=== PATIENT | female | born 1995 | race Caucasian/White ===

== ENCOUNTER 2023-09-26 09:20 | Emergency (ER) | payer OTHER, SELFPAY ==
[2023-09-26 09:21] VITALS: BP 133/84; PULSE 63; RESP 20; TEMP 36.4; O2SAT 100
--- NOTE | 2023-09-26 09:43 | ED.ABDPAIN ---
HPI - Abdominal Pain General Chief Complaint: Abdominal Pain Stated Complaint: diarrhea; abdominal pain Time Seen by Provider: 09/26/23 09:32 Source: patient Mode of arrival: ambulatory Limitations: no limitations History of Present Illness HPI narrative: this is a 27-year-old female with some history of abdominal discomfort with nausea and abdominal bloating with episodes of diarrhea currently the patient is comfortable with no symptoms no diarrhea no abdominal pain does feel mildly nauseated with no vomiting no fever chills no shortness of breath or chest pain. MD elicited complaint: abdominal pain Onset (ago): year(s) Location: epigastric Severity: mild Related Data Home Medications Medication Instructions Recorded Confirmed atorvastatin 20 mg tablet 20 mg PO DAILY 09/26/23 09/26/23 fenofibrate 160 mg tablet 160 mg PO DAILY 09/26/23 09/26/23 metformin 500 mg tablet,extended 500 mg PO BID 09/26/23 09/26/23 release 24 hr semaglutide 0.25 mg or 0.5 mg (2 0.25 mg subcut WEEKLY 09/26/23 09/26/23 mg/3 mL) subcutaneous pen injector (Ozempic) Allergies Allergy/AdvReac Type Severity Reaction Status Date / Time ceftriaxone [From Rocephin] Allergy Severe Anaphalaxis Verified 09/26/23 09:26 Penicillins Allergy Unknown Hives Verified 09/26/23 09:26 Review of Systems Review of Systems: All systems reviewed & are unremarkable except as noted in HPI and below PMFSH Past Medical History Medical History HLD (hyperlipidemia) Social History Social History Smoking packs per day: 0.5 Smoking cigarettes per day: 10.0 Smoking status: Current every day smoker Alcohol intake: current Substance use: never Exam Const: General: healthy appearing Nutritional Appearance: well nourished Orientation/consciousness: patient oriented x3 Limitations: no limitations Neck: Neck: normal visual inspection, no lymphadenopathy and no meningeal signs Chest: Chest palpation & inspection: normal inspection of the chest Resp: Effort & Inspection: normal respiratory effort Auscultation: clear to auscultation bilaterally Cardio: Rate: regular rate Rhythm: regular rhythm GI: GI Palp: Yes Soft to palpation and Yes Tenderness to palpation present (GI) ( mild epigastric tenderness with palpation) Auscultation: normal bowel sounds Back/Spine/Pelvis: Back: no CVA tenderness Skin: General skin exam: normal color Rashes: no rashes Neuro: General: patient oriented x3, moves all extremities and no meningeal signs Course Course Emergency Course: patient currently has no abdominal pain no nausea or vomiting except for some mild nausea with no diarrhea, will administer a dose of Zofran Protonix. Vital Signs Vital signs: Vital Signs Temperature 36.4 C 09/26/23 09:21 Pulse Rate 63 09/26/23 09:21 Respiratory Rate 20 09/26/23 09:21 Blood Pressure 133/84 09/26/23 09:21 Pulse Oximetry 100 09/26/23 09:21 Oxygen Delivery Room Air 09/26/23 09:21 Temperature 36.4 C 09/26/23 09:21 Pulse Rate 63 09/26/23 09:21 Respiratory Rate 20 09/26/23 09:21 Blood Pressure 133/84 09/26/23 09:21 Pulse Oximetry 100 09/26/23 09:21 Oxygen Delivery Room Air 09/26/23 09:21 Critical Care Time Critical Care Time Critical Care Time: No Discharge Plan Discharge Clinical Impression: Gastritis Patient Disposition: Home, Self-Care Condition: Stable Instructions: Antibiotic Form, Gastritis (ED) Additional Instructions: advised patient to hold her fenofibrate, take medicine as prescribed and follow up with primary if symptoms persist or worsen Prescriptions: New pantoprazole [Protonix] 40 mg tablet,delayed release (DR/EC) 40 mg PO QAM 28 Days Qty: 28 0RF ondansetron 4 mg tablet,disintegrating 4 mg PO Q6H PRN (Reason: nausea and vomiting) Qty: 14 0RF Acidophilus C
[2023-09-26] MEDS: ONDANSETRON HCL ODT 4 MG TABLET PO (09:46)
[2023-09-26] MEDS: PANTOPRAZOLE 40 MG TABLET PO (09:46)
== END 2023-09-26 09:56 | disposition home or self-care (01) ==
PROVIDERS: Emergency Provider Emergency Medicine; PCP Physician Assistant
DX: K29.70 Gastritis, unspecified, without bleeding (principal); E78.5 Hyperlipidemia, unspecified; Z79.84 Long term (current) use of oral hypoglycemic drugs; Z79.85 Long-term (current) use of injectable non-insulin antidiabetic drugs; F17.210 Nicotine dependence, cigarettes, uncomplicated
CPT/HCPCS: 99283; A9270

== ENCOUNTER 2024-11-26 19:16 | Emergency (ER) | payer OTHER, SELFPAY ==
--- NOTE | ~2024-11-26 | CT_ITS ---
CLINICAL INDICATION: Lower abdominal pain COMPARISON: None. TECHNIQUE: Multiple contiguous axial images of the abdomen and pelvis were performed without the admi nistration of intravenous contrast The dose-length product (DLP) was 1426.99 mGy-cm. Automated exposure control and iterative reconstruction technique were employed. FINDINGS/OBSERVATIONS: Visualized lower thorax: The bilateral lung bases are clear. The heart is of normal size, without pericardial effusion. Liver: The liver demonstrates homogeneous attenuation and is enlarged measuring 20 cm in longitudinal dimens ion. Gallbladder and biliary system: The gallbladder is nonvisualized, presumably surgically absent. Pancreas: Limited evaluation of the pancreas secondary to the lack of intravenous contrast. Spleen: The spleen demonstrates homogeneous attenuation and is enlarged measuring 14 cm in longitudinal dimen jerry. Kidneys: The bilateral kidneys are unremarkable, without hydronephrosis or renal calculi. Adrenal glands: Unremarkable. Gastrointestinal tract: Findings on sagittal view suggesting rectal prolapse, an unexpected finding i n a patient of this age for which clinical correlation is needed. Retained gastric contents within the stomach. Appendix: The air-filled appendix is of normal caliber (axial series, images 135 through 147). Vasculature: Unremarkable. Lymph nodes: Limited with evaluation without intravenous contrast. Pelvic structures: The bladder is only minimally distended, and otherwise unremarkable. The uterus is anteverted and anteflexed, and otherwise unremarkable. Body wall and musculoskeletal: No significant degenerative disease within the lower thoracic or lumbosacral spine. IMPRESSION: Findings on sagittal view suggesting rectal prolapse, an expected finding in a patient of this age fo r which clinical correlation and direct visualization is needed. Hepatosplenomegaly. Otherwise, no acute findings within the lower chest, abdomen or pelvis. Reviewed, dictated and finalized at location A. IMPRESSION: Findings on sagittal view suggesting rectal prolapse, an expected finding in a patient of this age for which clinical correlation and direct visualization is needed. Hepatosplenomegaly. Otherwise, no acute findings within the lower chest, abdomen or pelvis.
[2024-11-26 19:16] VITALS: BP 121/81; PULSE 64; RESP 18; TEMP 36.4; O2SAT 97
--- NOTE | 2024-11-26 19:33 | PC.NURSE ---
PATIENT TRANSPORTED TO CT VIA STRETCHER
[2024-11-26] MEDS: KETOROLAC (*BKC) 60 MG/2 ML VIAL IM (19:43)
[2024-11-26 19:47] LABS: Basophils Absolute Auto 0.04 K/mm3 (0.00-0.10); Basophils Percent Auto 0.3 % (0.0-1.0); Eosinophils Absolute Auto 0.48 K/mm3 (0.02-0.50); Eosinophils Percent Auto 3.7 % (1.0-6.0); Hematocrit 39.9 % (35.0-49.0); Hemoglobin 13.3 g/dL (12.0-15.0); Immature Granulocyte Absolute 0.05 K/mm3 (0.00-0.00); Immature Granulocyte Percent A 0.4 % (0.0-0.0); Lymphocytes Absolute Auto 3.09 K/mm3 (1.10-4.50); Lymphocytes Percent Auto 23.9 % (18.0-42.0); Mean Corpuscular HGB Conc 33.3 g/dL (32-36); Mean Corpuscular Hemoglobin 30.2 pg (27.0-31.0); Mean Corpuscular Volume 90.5 fL (78.0-102.0); Monocytes Absolute Auto 0.52 K/mm3 (0.10-0.90); Neutrophils Absolute Auto 8.75 K/mm3 (1.70-7.20); Neutrophils Percent Auto 67.7 % (50.0-70.0); Platelet Count Result 258 K/mm3 (150-420); Red Blood Count 4.41 M/mm3 (4.20-5.40); Red Cell Distribution Width 13.2 % (11.6-14.4); White Blood Count 12.9 K/mm3 (4.8-10.8)
--- NOTE | 2024-11-26 19:47 | PC.NURSE ---
PATIENT AMBULATED TO THE BATHROOM TO GIVE URINE SAMPLE
[2024-11-26 19:59] LABS: Alanine Aminotransferase 28 U/L (6-35); Albumin Level 4.3 g/dL (3.5-5.1); Alkaline Phosphatase 62 U/L (38-126); Anion Gap 6 mmol/L (4-12); Aspartate Amino Transferase 24 U/L (14-36); Bilirubin,Total 0.5 mg/dL (0.2-1.3); Blood Urea Nitrogen 10 mg/dL (7-17); Calcium 9.1 mg/dL (8.4-10.2); Carbon Dioxide 24 mmol/L (22-30); Chloride 109 mmol/L (98-107); Estimated CRCL calculation 116 ml/min; Estimated Glomerular Filt Rate > 60; Glucose 171 mg/dL (65-110); Osmolality Calculated 291 mOsm/kg (285-295); Sodium 139 mmol/L (137-145); Total Protein 7.1 g/dL (6.3-8.2)
--- NOTE | 2024-11-26 20:08 | PC.NURSE ---
STANDING AT THE SIDE OF THE BED. WAITING ON TEST RESULTS.
[2024-11-26 20:26] LABS: Add Urine Microscopic? NO; Appearance Urine Clear (Clear); Bilirubin Urine Negative (Negative); Blood Urine Negative (Negative); Color Urine Light Yellow (Yellow); Glucose Urine UA Negative (Negative); Ketones Urine Trace (Negative); Leukocyte Esterase Ur Negative LEU/UL (Negative); Nitrate Urine Negative (Negative); Protein Urine Negative (Negative); Specific Grav Ur >= 1.030 (1.010-1.020); Urobilinogen Urine 0.2 mg/dL (0.2-1.0); pH Urine 5.5 (5.0-8.0)
--- NOTE | 2024-11-26 20:27 | PC.NURSE ---
DR JONES AT THE BEDSIDE
--- NOTE | 2024-11-26 20:28 | ED_ITS ---
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 Onset (ago): month(s) Related Data Home Medications ?Medication ?Instructions ?Recorded ?Confirmed ?Last Taken ?Type atorvastatin 20 mg tablet 20 mg PO DAILY 09/26/23 09/26/23 Unknown History fenofibrate 160 mg tablet 160 mg PO DAILY 09/26/23 09/26/23 Unknown History metformin 500 mg tablet,extended 500 mg PO BID 09/26/23 09/26/23 Unknown History release 24 hr semaglutide 0.25 mg or 0.5 mg (2 0.25 mg subcut WEEKLY 09/26/23 09/26/23 Unknown History mg/3 mL) subcutaneous pen injector (Ozempic) Allergies Allergy/AdvReac Type Severity Reaction Status Date / Time ceftriaxone (From Rocephin) Allergy Severe Anaphalaxis Verified 09/26/23 09:26 Penicillins Allergy Unknown Hives Verified 09/26/23 09:26 Review of Systems 2 Review of Systems: All systems reviewed & are unremarkable except as noted in HPI and below PMFSH Past Medical History Medical History HLD (hyperlipidemia) Social History Social History Smoking packs per day: 0.5 Smoking cigarettes per day: 10.0 Smoking status: Current every day smoker Alcohol intake: current Substance use: never Exam 2 Const: General: healthy appearing and no acute distress Nutritional Appearance: well nourished Orientation/consciousness: patient oriented x3 Limitations: no limitations Neck: Neck: normal visual inspection Chest: Chest palpation & inspection: normal inspection of the chest Resp: Effort & Inspection: normal respiratory effort Auscultation: clear to auscultation bilaterally Cardio: Rate: regular rate Rhythm: regular rhythm GI: GI Palp: Yes Soft to palpation Auscultation: normal bowel sounds : General: Yes bladder normal to palpation Urinary Catheter: Urinary Catheter: patent and draining Back/Spine/Pelvis: Back: no CVA tenderness Skin: General skin exam: normal color Rashes: no rashes Wounds: no wounds Extrem: General: normal to inspection, no clubbing, cyanosis or edema and no pedal edema Course Course Emergency Course: Blood work performed unremarkable urinalysis performed and reviewed with patient. CT scan abdomen pelvis does show evidence of a rectal prolapse but after direct visualization there is no evidence of protrusion of the rectum. Vital Signs Vital signs: Vital Signs Temperature 36.4 C 11/26/24 19:16 Pulse Rate 64 11/26/24 19:16 Respiratory Rate 18 11/26/24 19:16 Blood Pressure 121/81 11/26/24 19:16 Pulse Oximetry 97 11/26/24 19:16 Oxygen Delivery Room Air 11/26/24 19:16 Temperature 36.4 C 11/26/24 19:16 Pulse Rate 64 11/26/24 19:16 Respiratory Rate 18 11/26/24 19:16 Blood Pressure 121/81 11/26/24 19:16 Pulse Oximetry 97 11/26/24 19:16 Oxygen Delivery Room Air 11/26/24 19:16 MDM - Female Genitourinary Lab Data 11/26/24 19:44 11/26/24 19:44 Labs: Lab Results 11/26/24 Range/Units 19:44 WBC 12.9 H (4.8-10.8) K/mm3 RBC 4.41 (4.20-5.40) M/mm3 Hgb 13.3 (12.0-15.0) g/dL Hct 39.9 (35.0-49.0) % MCV 90.5 (78.0-102.0) fL MCH 30.2 (27.0-31.0) pg MCHC 33.3 (32-36) g/dL RDW 13.2 (11.6-14.4) % Plt Count 258 (150-420) K/mm3 MPV 10.0 (9.2-11.8) fl Immature Gran % (Auto) 0.4 H (0.0-0.0) % Neut % (Auto) 67.7 (50.0-70.0) % Lymph % (Auto) 23.9 (18.0-42.0) % Blount % (Auto) 4.0 (2.0-11.0) % Eos % (Auto) 3.7 (1.0-6.0) % Baso % (Auto) 0.3 (0.0-1.0) % Lymph # (Auto) 3.09 (1.10-4.50) K/mm3 Blount # (Auto) 0.52 (0.10-0.90) K/mm3 Eos # (Auto) 0.48 (0.02-0.50) K/mm3 Baso # (Auto) 0.04 (0.00-0.10) K/mm3 Abs Immat Gran (auto) 0.05 H (0.00-0.00) K/mm3 Absolute Neuts (auto) 8.75 H (1.70-7.20) K/mm3 Absolute Nucleated RBC 0.00 (0.00-0.00) K/mm3 Nucleated RBC % 0.0 (0-0.0) % Sodium 139 (137-145) mmol/L Potassium 4.0 (3.4-5.0) mmol/L Chloride 109 H (98-107) mmol/L Carbon Dioxide 24 (22-30) mmol/L Anion Gap 6 (4-12) mmol/L BUN 10 (7-17) mg/dL Creatinine 0.81 (0.7-1.0) mg/dL Estim Creat Clear Calc 116 ml/min Estimated GFR > 60 (59 - ) Glucose 171 H (65-110) mg/dL Calculated Osmolality 291 (285-295) mOsm/kg Calcium 9.1 (8.4-10.2) mg/dL Total Bilirubin 0.5 (0.2-1.3) mg/dL AST 24 (14-36) U/L ALT 28 (6-35) U/L Alkaline Phosphatase 62 (38-126) U/L Total Protein 7.1 (6.3-8.2) g/dL Albumin 4.3 (3.5-5.1) g/dL Critical Care Time Critical Care Time Critical Care Time: No Discharge Plan Discharge Clinical Impression: Incomplete rectal prolapse Patient Disposition: Home Condition: Stable Instructions: Antibiotic Form, Rectal Prolapse (ED) Patient Language: [place] Prescriptions: No Action atorvastatin 20 mg tablet 20 mg PO DAILY metformin 500 mg tablet extended release 24 hr 500 mg PO BID fenofibrate 160 mg tablet 160 mg PO DAILY Ozempic 0.25 mg or 0.5 mg (2 mg/3 mL) pen injector 0.25 mg SUBCUT WEEKLY pantoprazole [Protonix] 40 mg tablet,delayed release (DR/EC) 40 mg PO QAM 28 Days Qty: 28 0RF ondansetron 4 mg tablet,disintegrating 4 mg PO Q6H PRN (Reason: nausea and vomiting) Qty: 14 0RF Acidophilus Capsule 2,000 mmu cells PO DAILY Qty: 14 0RF Follow-up/Referrals: Isa,JULIETTE Bosch [Primary Care Provider] -
--- NOTE | 2024-11-26 20:34 | PC.NURSE ---
RETAIL AND PROMOTIONS COORDINATOR COMPLETED WITH DR JONES FOR RECTAL EXAM
[2024-11-26 21:31] VITALS: BP 118/78; PULSE 62; RESP 18; O2SAT 100
== END 2024-11-26 21:31 | disposition home or self-care (01) ==
PROVIDERS: Emergency Provider Emergency Medicine; PCP Physician Assistant
DX: K62.3 Rectal prolapse (principal); E78.5 Hyperlipidemia, unspecified; F17.210 Nicotine dependence, cigarettes, uncomplicated
CPT/HCPCS: 36415; 74176; 80053; 81003; 85025; 96372; 99284; J1885

== ENCOUNTER 2025-03-09 09:22 | Outpatient (CLI) | payer OTHER, SELFPAY ==
--- NOTE | 2025-03-11 14:02 | WPDHOLTEREM ---
Holter/Event Monitor Holter/Event Monitor Date of procedure: 03/09/25 Holter/Event Procedure: 48 Hr Holter Monitor Indications: Bradycardia Conclusion: 1. 48 hour holter monitor on 03/09/25. 2. Underlying rhythm is sinus rhythm. HR range 40-150 bpm; average HR 71 bpm. HR at 40 bpm was at 6:19 am. HR at 150 bpm was at 11:06 pm. 3. There are 1,200 premature supraventricular complexes, 213 supraventricular couplets, 4 supraventricular trigeminy. No supraventricular tachycardia. 4. There are 102 premature ventricular complexes. No ventricular tachycardia. 5. No significant pauses greater than 2 seconds. 6. No symptoms available for correlation.
== END 2025-03-09 09:23 | disposition home or self-care (01) ==
PROVIDERS: PCP Registered Nurse; Visit Provider Registered Nurse
DX: R07.9 Chest pain, unspecified (principal)
CPT/HCPCS: 93225; 93226